=== PATIENT | female | born 1990 | race Caucasian/White ===

== ENCOUNTER → 2016-12-18 | Outpatient (CLI) | payer BC ==
[~2016-12-18] MED LIST: CLARITIN10 MG PO; MIRALAX PACKET17 GM PO; MOTRIN PO; NORCO 5-325 TA1 EACH PO; PRENATAL VIT1 TAB PO; TYLENOL PO
== END | disposition home or self-care (01) ==
LOC: PTH.S 17:09
DX: N80.9 Endometriosis, unspecified (principal); N71.1 Chronic inflammatory disease of uterus